=== PATIENT | male | born 1985 | race Two or more races ===

== ENCOUNTER 2019-11-14 01:09 | Emergency (ER) | payer SELFPAY ==
[2019-11-14] MEDS ORDERED: Alum Hydrox/Mag Hydrox/Simeth 30 ML, Lidocaine 2% 15 ML PO STA ×2 (01:44)
--- NOTE | 2019-11-14 01:47 | EDM.PDOC ---
ED HPI GENERAL MEDICAL PROBLEM - General Chief Complaint: Chest Pain Stated Complaint: CHEST PAIN CENTER FOR 7 HOURS Time Seen by Provider: 11/14/19 01:25 Source of Information: Reports: Patient History Limitations: Reports: No Limitations - History of Present Illness INITIAL COMMENTS - FREE TEXT/NARRATIVE: Mr. Arriaga is a very pleasant 34-year-old gentleman who now presents to the ED for what he is calling chest pain, however, he indicates is in his epigastrium. He points with one finger to his epigastrium. He states that he developed sudden onset pressure around 17:30, while drinking a beer. He stopped drinking the beer, but the pressure sensation persisted. He notes that he feels like belching a lot. The pressure sensation does not radiate anywhere. No associ ated nausea, dyspnea, diaphoresis, or sense of impending doom. No prior similar symptoms. The patient states that he took TUMS on 2 separate occasions since the onset of his symptoms, which did not seem to help. Here in the ED, the patient's initial BP is noted to be mildly elevated at 138/97, with a mild tachycardia of 104 bpm. He is afebrile, saturating 99 to 100% on room air. Prior to tonight's symptoms, the patient denies having a recent fever, chills, sore throat, ear pain, nasal or sinus congestion, cough, dyspnea, chest pain, palpitations, nausea, vomiting, constipation, diarrhea, abdominal pain, urinary symptoms, recent weight gain or weight loss, recent bloody bowel movements or black bowel movements, recent joint aches, headaches, or rashes. The patient does not have a PCP in this area. He has been working in this area, but got laid off. He intends to return home to [place] tomorrow. Middle Chest Pain Score (Numeric/FACES): 7 - Related Data Allergies Allergy/AdvReac Type Severity Reaction Status Date / Time No Known Allergies Allergy Verified 11/14/19 01:35 Home Meds: Home Meds Amoxicillin/Clavulanate K [Augmentin 875-125 MG] 1 tab PO BID 11/14/19 [History] Past Medical History Neurological History: Reports: Seizure (As a child. Last seizure when 12 years old. Untreated since his teens.) - Past Surgical History HEENT Surgical History: Reports: Oral Surgery (dental extractions) Dermatological Surgical History: Reports: Other (See Below) (Pilonidal cyst excision. Right neck cystectomy.) Social & Family History - Alcohol Use Alcohol Use History: Yes Alcohol Use Frequency: Socially - Recreational Drug Use Recreational Drug Use: Yes Drug Use in Last 12 Months: No Recreational Drug Type: Reports: Marijuana/Hashish (last smoked as a teenager) - Living Situation & Occupation Living situation: Reports: ( and daughter in [place]), Other (2 roomates) Occupation: Unemployed ED ROS GENERAL - Review of Systems Review Of Systems: Comprehensive ROS is negative, except as noted in HPI. ED EXAM, GENERAL - Physical Exam Exam: See Below Exam Limited By: No Limitations General Appearance: Alert, WD/WN, No Apparent Distress Eye Exam: Bilateral Eye: EOMI, Normal Inspection Ears: Normal External Exam, Hearing Grossly Normal Nose: Normal Inspection Throat/Mouth: Normal Inspection, Normal Lips, Normal Voice, No Airway Compromise Head: Atraumatic, Normocephalic Neck: Normal Inspection, Full Range of Motion Respiratory/Chest: No Respiratory Distress, Lungs Clear, Normal Breath Sounds, No Accessory Muscle Use, Chest Non-Tender Cardiovascular: Normal Peripheral Pulses, Regular Rate, Rhythm, No Edema, No Gallop, No JVD, No Murmur, No Rub Peripheral Pulses: 3+: Radial (L), Radial (R) GI/Abdominal: Normal Bowel Sounds, Soft, Non-Tender (including the epigastrium), No Organomegaly, No Distention, No Abnormal Bruit, No Mass Back Exam: Normal Inspection, Full Range of Motion, NT Extremities: Normal Inspection, Normal Range of Motion, No Pedal Edema, Normal Capillary Refill Neurological: Alert, Oriented, Normal Cognition, No Motor/Sensory Deficits Psychiatric: Normal Affect Skin Exam: Warm, Dry, Intact, Normal Color, No Rash EKG INTERPRETATION EKG Date: 11/14/19 Time: 02:35 Rhythm: NSR Rate (Beats/Min): 88 [place]: Normal P-Wave: Present QRS: Normal ST-T: Normal QT: Normal Comparison: NA - No Prior EKG Course - Vital Signs Last Recorded V/S: Last Vital Signs Temp 36.3 C 11/14/19 01:24 Pulse 104 H 11/14/19 01:24 Resp 20 11/14/19 01:24 BP 138/97 H 11/14/19 01:24 Pulse Ox 99 11/14/19 01:24 - Orders/Labs/Meds Orders: Active Orders 24 hr Category Date Time Status EKG Documentation Completion [RC] STAT Care 11/14/19 02:13 Active Chest 2V [CR] Stat Exams 11/14/19 02:13 Taken CORONAVIRUS COVID-19 PCR PHL Stat Lab 11/14/19 02:33 Ordered Labs: Laboratory Tests 11/14/19 11/14/19 Range/Units 01:35 01:35 WBC 11.98 H (4.23-9.07) K/mm3 RBC 5.29 (4.63-6.08) M/mm3 Hgb 15.8 (13.7-17.5) gm/dl Hct 47.3 (40.1-51.0) % MCV 89.4 (79.0-92.2) fl MCH 29.9 (25.7-32.2) pg MCHC 33.4 (32.2-35.5) g/dl RDW Std Deviation 43.9 (35.1-43.9) fL Plt Count 287 (163-337) K/mm3 MPV 10.0 (9.4-12.3) fl Neutrophils % (Manual) 67 H (40-60) % Band Neutrophils % 0 (0-10) % Lymphocytes % (Manual) 18 L (20-40) % Atypical Lymphs % 0 % Monocytes % (Manual) 13 H (2-10) % Eosinophils % (Manual) 2 (0.8-7.0) % Basophils % (Manual) 0 L (0.2-1.2) Platelet Estimate Adequate Poikilocytosis 1+ slight Anisocytosis 1+ slight RBC Morph Comment Abnormal Sodium 140 (136-145) mEq/L Potassium 3.9 (3.5-5.1) mEq/L Chloride 103 (98-107) mEq/L Carbon Dioxide 31 (21-32) mEq/L Anion Gap 9.9 (5-15) BUN 15 (7-18) mg/dL Creatinine 0.9 (0.7-1.3) mg/dL Est Cr Clr Drug Dosing 109.15 mL/min Estimated GFR (MDRD) > 60 (>60) mL/min BUN/Creatinine Ratio 16.7 (14-18) Glucose 112 H (74-106) mg/dL Calcium 8.8 (8.5-10.1) mg/dL Total Bilirubin 0.4 (0.2-1.0) mg/dL AST 22 (15-37) U/L ALT 30 (16-63) U/L Alkaline Phosphatase 88 (46-116) U/L Troponin I < 0.017 (0.00-0.056) ng/mL Total Protein 7.6 (6.4-8.2) g/dl Albumin 3.9 (3.4-5.0) g/dl Globulin 3.7 gm/dL Albumin/Globulin Ratio 1.1 (1-2) Meds: Medications Discontinued Medications Generic Name Dose Route Start Last Admin Trade Name Freq PRN Reason Stop Dose Admin Al Hydroxide/Mg Hydroxide 30 0 ml 11/14/19 01:44 11/14/19 01:52 ml/ Lidocaine HCl 15 ml PO 11/14/19 01:45 45 ml ONETIME STA Administration Famotidine 40 mg 11/14/19 02:43 11/14/19 02:52 Pepcid IVPUSH 11/14/19 02:44 40 mg ONETIME STA Administration - Re-Assessments/Exams Free Text/Narrative Re-Assessment/Exam: 11/14/19 01:45 As above, the patient developed epigastric pain that radiates up his midline chest around 17:30 tonight, while drinking a beer. The pain is only present if he inhales or moves, and resolves completely if he remains perfectly still. His oxygen saturation is 99 to 100% on room air, and his physical exam is unremarkable. I suspect that he is suffering from GERD, therefore I ordered a GI cocktail, to see if that modifies his symptoms at all. 11/14/19 02:14 The patient reports that he had some transient improvement in his epigastric pain following a GI cocktail. I explained that I am quite confident that his symptoms are due to GERD, and I did not feel that any further testing is necessary, however, the patient pointed out that the triage nurse placed an IV and mine blood, and he was hoping that we would run tests on that blood, just to be sure. I have therefore ordered blood work, chest x-ray, and an ECG. 11/14/19 02:43 The patient's CBC is remarkable for WBC count mildly elevated at 11.98, but with 0% bandemia. The remainder of his CBC is unremarkable. His CMP is remarkable for blood glucose slightly elevated at 112, with the remainder of his CMP being unremarkable. His troponin is undetectably low. 11/14/19 03:09 Two-view chest radiograph appears to be grossly normal. The cardiac silhouette is within normal limits. No pulmonary vascular congestion. No pleural effusions. No focal infiltrate. No pneumothorax. Formal read per the Radiologist pending. 11/14/19 03:11 Test results discussed with the patient. As above, today's work-up is completely unremarkable. I suspect that his symptoms are due to GERD. I am recommending that he continue to take [id number] famotidine on a regular basis. I will discharge him home. Departure - Departure Time of Disposition: 03:11 Disposition: Home, Self-Care 01 Condition: Good Clinical Impression: GERD (gastroesophageal reflux disease) - Discharge Information *PRESCRIPTION DRUG MONITORING PROGRAM REVIEWED*: Not Applicable *COPY OF PRESCRIPTION DRUG MONITORING REPORT IN PATIENT ELVIA: Not Applicable Referrals: PCP,None [Primary Care Provider] - Forms: ED Department Discharge Additional Instructions: You were seen in the emergency room for upper midline abdominal pain that radiated up the midline of your chest. Work-up in the ER included blood work, a chest x-ray, and ECG, and a swab for the SARS-CoV-2 virus. Your entire work-up was unremarkable. You have not suffered a heart attack. You do not have pneumonia. You do not have a collapsed lung. Based on your history, physical exam, and ER tests, you are most likely suffering from GERD (gastroesophageal reflux disease). You have been started on the antacid famotidine (Pepcid). Famotidine is available [id number], and generic famotidine is just as good as brand-name Pepcid. We recommend that you take 1 tablet of famotidine either once or twice a day, on a regular basis. If your symptoms persist, we recommend you follow-up with your doctor in [place], for further evaluation. You should be notified of the results of your swab for the SARS-CoV-2 virus in the next 24 to 48 hours. If any other problems, please do not hesitate to return to the ER. Sepsis Event Note (ED) - Evaluation Sepsis Screening Result: No Definite Risk - Focused Exam Vital Signs: Vital Signs Temp Pulse Resp BP Pulse Ox 11/14/19 01:24 36.3 C 104 H 20 138/97 H 99 - My Orders Last 24 Hours: My Active Orders 11/14/19 02:13 EKG Documentation Completion [RC] STAT Chest 2V [CR] Stat 11/14/19 02:33 CORONAVIRUS COVID-19 PCR PHL Stat - Assessment/Plan Last 24 Hours: My Active Orders 11/14/19 02:13 EKG Documentation Completion [RC] STAT Chest 2V [CR] Stat 11/14/19 02:33 CORONAVIRUS COVID-19 PCR PHL Stat
[2019-11-14] MEDS ORDERED: Famotidine 20 MG/2 ML SDV IVPUSH STA (02:43)
--- NOTE | 2019-11-14 06:39 | CR ---
Chest: 2 views of the chest were obtained. Comparison: No prior chest imaging is available. Heart size and mediastinum are normal. Lungs are clear with no acute parenchymal change. Bony structures are unremarkable. Impression: 1. Nothing acute is appreciated on 2 view chest x-ray. Diagnostic code #1 This report was dictated in MDT
== END 2019-11-14 03:27 | disposition home or self-care (01) ==
LOC: JD.ED 01:09
DX: K21.9 Gastro-esophageal reflux disease without esophagitis (principal); Z20.828 Contact with and (suspected) exposure to other viral communicable diseases
CPT/HCPCS: 36415; 71046; 80053; 84484; 85007; 85027; 87635; 93005; 96374; 99285; A9270; J3490; 93010; 99283; U0002